=== PATIENT | female | born 1995 | race Caucasian/White ===

== ENCOUNTER 2019-11-27 15:00 | Emergency (ER) | payer OTHER ==
[2019-11-27 15:28] VITALS: BP 107/67
[2019-11-27] MEDS ORDERED: Ondansetron ODT TAB* 4 MG PO ONE (15:32)
--- NOTE | 2019-11-27 15:45 | UC ---
Abdominal Pain Female HPI - HPI Summary HPI Summary: C/O nausea/ vomiting and diarrhea x 2 days. 5 yo son had it first. - History of Current Complaint Chief Complaint: UCGeneralIllness Stated Complaint: VOMITING/DIARRHEA Time Seen by Provider: 11/27/19 15:32 Hx Obtained From: Patient Hx Last Menstrual Period: IUD ?: No Onset/Duration: Sudden Onset, Lasting Days - 2, Still Present Timing: Constant Severity Initially: Moderate Severity Currently: Moderate Pain Intensity: 0 Location: Diffuse Radiates: No Character: Cramping, Sharp Aggravating Factor(s): Food, Movement Alleviating Factor(s): Nothing Associated Signs and Symptoms: Positive: Nausea, Vomiting, Diarrhea. Negative: Diaphoresis, Cough, Chest Pain, Blood in Stool Allergies/Adverse Reactions: Allergies Allergy/AdvReac Type Severity Reaction Status Date / Time No Known Allergies Allergy Verified 11/27/19 15:29 Home Medications: Home Medications Divalproex Sodium [Depakote] 250 mg PO DAILY 11/27/19 [History Confirmed ] Gabapentin 1,200 mg PO DAILY 11/27/19 [History Confirmed 11/27/19] Lurasidone(*) [Latuda] 180 mg PO DAILY 11/27/19 [History Confirmed 11/27/19] Ondansetron ODT TAB* [Zofran 4 MG Odt TAB*] 4 mg PO Q6H PRN #30 tab.odt [Rx] Prazosin 1 mg CAP [Minipress 1 mg CAP] 2 mg PO DAILY 11/27/19 [History Confirmed 11/27/19] PMH/Surg Hx/FS Hx/Imm Hx Previously Healthy: Yes - Surgical History Surgical History: None - Family History Known Family History: Positive: Diabetes - Social History Occupation: Employed Full-time Lives: With Family Alcohol Use: None Substance Use Type: None Smoking Status (MU): Heavy Every Day Tobacco Smoker Review of Systems All Other Systems Reviewed And Are Negative: Yes Constitutional: Positive: Chills, Fatigue Gastrointestinal: Positive: Abdominal Pain, Vomiting, Diarrhea, Nausea Is Patient Immunocompromised?: No Physical Exam Triage Information Reviewed: Yes Appearance: Well-Nourished, Ill-Appearing, Pain Distress - mild Vital Signs: Initial Vital Signs Temp 99.2 F 11/27/19 15:24 Pulse 99 11/27/19 15:24 Resp 14 03/01/20 15:24 BP 107/67 11/27/19 15:24 Pulse Ox 97 11/27/19 15:24 Vital Signs Reviewed: Yes Eyes: Positive: Conjunctiva Clear ENT: Positive: Pharynx normal, TMs normal Neck exam: Normal Respiratory Exam: Normal Cardiovascular Exam: Normal Abdomen Description: Positive: No Organomegaly, Soft. Negative: Nontender - diffusely tender Bowel Sounds: Positive: Present Musculoskeletal Exam: Normal Neurological Exam: Normal Psychological Exam: Normal Skin Exam: Normal Abd Pain Female Course/Dx - Differential Dx/Diagnosis Differential Diagnosis: Appendicitis, Constipation, Diverticulitis, Irritable Bowel Syndrome Provider Diagnosis: Gastroenteritis Discharge ED - Sign-Out/Discharge Documenting (check all that apply): Patient Departure All imaging exams completed and their final reports reviewed: No Studies - Discharge Plan Condition: Stable Disposition: HOME Prescriptions: Ondansetron ODT TAB* [Zofran 4 MG Odt TAB*] 4 mg PO Q6H PRN #30 tab.odt PRN Reason: Nausea/Vomiting Patient Education Materials: Gastroenteritis (ED) Referrals: No Primary Care Phys,NOPCP [Primary Care Provider] - Additional Instructions: Ok to use imodium for diarrhea as long as there is no blood or mucus in the diarrhea. - Billing Disposition and Condition Condition: STABLE Disposition: Home
== END 2019-11-27 15:54 | disposition home or self-care (01) ==
LOC: UCCORT 15:00
DX: K52.9 Noninfective gastroenteritis and colitis, unspecified (principal); F17.290 Nicotine dependence, other tobacco product, uncomplicated
CPT/HCPCS: 99212; A9270-GY; G0463

== ENCOUNTER 2019-12-11 10:57 | Emergency (ER) | payer OTHER ==
[2019-12-11 11:35] VITALS: BP 110/66
--- NOTE | 2019-12-11 11:42 | UC ---
Skin Complaint HPI - HPI Summary HPI Summary: 24 yo female presents with rash. She tells me that last night she noticed a red , itchy, bumpy rash to her left wrist. This morning has spread and is more itchy. She has not applied any creams or OTC treatments. She denies injury or exposure. 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 Denies fever, recent illness, or decreased ROM. - History of Current Complaint Chief Complaint: UCRash Time Seen by Provider: 12/11/19 11:42 Stated Complaint: RASH Hx Obtained From: Patient Hx Last Menstrual Period: 12/07/19 Onset/Duration: Sudden Onset Onset Severity: Moderate Current Severity: Moderate Pain Intensity: 8 Pain Scale Used: 0-10 Numeric - Allergy/Home Medications Allergies/Adverse Reactions: Allergies Allergy/AdvReac Type Severity Reaction Status Date / Time No Known Allergies Allergy Verified 12/11/19 11:31 Home Medications: Home Medications Divalproex Sodium [Depakote] 250 mg PO DAILY 11/27/19 [History Confirmed ] Gabapentin 1,200 mg PO DAILY 11/27/19 [History Confirmed 12/11/19] Lurasidone(*) [Latuda] 180 mg PO DAILY 11/27/19 [History Confirmed 12/11/19] Prazosin 1 mg CAP [Minipress 1 mg CAP] 2 mg PO DAILY 11/27/19 [History Confirmed 12/11/19] Cephalexin CAP* [Keflex CAP*] 500 mg PO TID #15 cap 12/11/19 [Rx] Triamcinolone 0.1% CREAM (NF) [Kenalog 0.1% Cream (NF)] 1 applic TOPICAL BID #1 tube 12/11/19 [Rx] predniSONE 20 mg TAB [Deltasone 20 MG TAB*] 40 mg PO DAILY 5 Days #8 tab [Rx] PMH/Surg Hx/FS Hx/Imm Hx Psychological History: Anxiety, Depression, Bipolar Disorder - Surgical History Surgical History: None - Family History Known Family History: Positive: Diabetes - Social History Lives: With Family Alcohol Use: None Substance Use Type: Marijuana Substance Use Comment - Amount & Last Used: Medical Smoking Status (MU): Heavy Every Day Tobacco Smoker Type: Cigarettes Amount Used/How Often: 1 PPD Length of Time of Smoking/Using Tobacco: Since Age 12 Household Exposure Type: Cigarettes Review of Systems All Other Systems Reviewed And Are Negative: No Constitutional: Positive: Negative Skin: Positive: Rash Eyes: Positive: Negative ENT: Positive: Negative Respiratory: Positive: Negative Cardiovascular: Positive: Negative Gastrointestinal: Positive: Negative Neurological/Mental Status: Positive: Negative Psychological: Positive: Negative Physical Exam - Summary Physical Exam Summary: GENERAL: NAD. WDWN. No pain distress. SKIN: LEFT WRIST: urticaria with mild erythema and warmth at distal radial aspect. NTTP. No abscess, blistering vesicles, or open wound. NECK: Supple. Nontender. No lymphadenopathy. CHEST: No accessory muscle use. Breathing comfortably and in no distress. CV: Pulses intact. Cap refill <2seconds MSK: LEFT WRIST FROM strength intact. NEURO: Alert. PSYCH: Age appropriate behavior. Triage Information Reviewed: Yes Vital Signs: Initial Vital Signs Temp 98.2 F 12/11/19 11:29 Pulse 90 12/11/19 11:29 Resp 16 12/11/19 11:29 BP 110/66 12/11/19 11:29 Pulse Ox 100 12/11/19 11:29 Vital Signs Reviewed: Yes Course/Dx - Course Course Of Treatment: Suspect allergic reactions vs insect/bug bite. - Diagnoses Provider Diagnosis: Bug bite Discharge ED - Sign-Out/Discharge Documenting (check all that apply): Patient Departure All imaging exams completed and their final reports reviewed: No Studies - Discharge Plan Condition: Stable Disposition: HOME Prescriptions: Cephalexin CAP* [Keflex CAP*] 500 mg PO TID #15 cap predniSONE 20 mg TAB [Deltasone 20 MG TAB*] 40 mg PO DAILY 5 Days #8 tab Triamcinolone 0.1% CREAM (NF) [Kenalog 0.1% Cream (NF)] 1 applic TOPICAL BID #1 tube Patient Education Materials: Urticaria (ED), Insect Bite or Sting (ED) Forms: *Work Release Referrals: No Primary Care Phys,NOPCP [Primary Care Provider] - Additional Instructions: If you develop a fever, shortness of breath, chest pain, new or worsening symptoms - please call your PCP or go to the ED immediately. Apply a cool compress to your wrist to decrease redness and swelling If the area spreads or worsens - please be rechecked - Billing Disposition and Condition Condition: STABLE Disposition: Home
== END 2019-12-11 12:01 | disposition home or self-care (01) ==
LOC: UCCORT 10:57
DX: S60.862A Insect bite (nonvenomous) of left wrist, initial encounter (principal); F31.9 Bipolar disorder, unspecified; W57.XXXA Bitten or stung by nonvenomous insect and other nonvenomous arthropods, initial encounter; Y92.9 Unspecified place or not applicable; F17.210 Nicotine dependence, cigarettes, uncomplicated; Z79.899 Other long term (current) drug therapy
CPT/HCPCS: 99212; G0463